=== PATIENT | female | born 1965 | race Caucasian/White ===

== ENCOUNTER 2017-03-10 10:01 | Outpatient (CLI) | payer OTHER ==
--- NOTE | 2017-03-10 11:06 | XRay Report ---
LEFT HIP, 2 views: History: Left hip pain. The bony architecture is intact without evidence of fracture or dislocation. No significant soft tissue abnormality is seen. IMPRESSION: Left hip within normal limits.
--- NOTE | 2017-03-10 11:07 | XRay Report ---
LEFT ANKLE, 3 views: History: left ankle pain. Bone mineralization is normal. No acute osseous abnormality or joint pathology is identified. Mild osteoarthritic changes are identified at the tibiotalar joint. The subtalar joint is unremarkable. Moderate to large plantar spur. IMPRESSION: Osteoarthritis. Plantar spur.
--- NOTE | 2017-03-10 11:08 | XRay Report ---
LUMBOSACRAL SPINE, 3 VIEWS: History: Low back pain Findings: Moderate multilevel degenerative disc disease and facet arthropathy are identified. All levels are affected. There are moderate to severe hypertrophic changes in the facet joints from L3-L5. There is no evidence for compression deformity, subluxation or bone lesion. The sacrum and SI joints are within normal limits. Impression: Moderate multilevel lumbar spondylosis. No acute process.
== END 2017-03-10 10:02 | disposition home or self-care (01) ==
LOC: XRAY 10:01
PROVIDERS: ATTEND Surgery Vascular Surgery
DX: M19.072 Primary osteoarthritis, left ankle and foot (principal); M47.896 Other spondylosis, lumbar region; M85.872 Other specified disorders of bone density and structure, left ankle and foot; M25.552 Pain in left hip
CPT/HCPCS: 72100